=== PATIENT | male | born 1940 | race Caucasian/White ===

== ENCOUNTER 2018-12-09 09:05 | Outpatient (CLI) | payer MEDICARE ==
--- NOTE | 2018-12-09 14:01 | RAD ---
EXAM: Right wrist 3 views: HISTORY: Pain COMPARISON: None FINDINGS: Severe degenerative changes of the wrist including the radiocarpal and triscaphe region and trapezium first metacarpal joint. Positive ulnar variance. No acute fracture or dislocation or other significant acute osseous abnormality. IMPRESSION: No significant acute process.
== END 2018-12-09 09:06 | disposition home or self-care (01) ==
LOC: RAD-FRANK 09:05
PROVIDERS: ATTEND Nurse Practitioner Family
DX: M25.531 Pain in right wrist (principal)

== ENCOUNTER 2019-02-19 09:07 | Outpatient (CLI) | payer MEDICARE ==
--- NOTE | 2019-02-19 09:28 | RAD ---
CHEST TWO VIEWS: HISTORY: Cough. COMPARISON: 05/12/2005 FINDINGS: Heart size is within normal limits. Mild increased linear and interstitial markings bilaterally, yaniv dence for minimal chronic change. Appearance has actually improved from the prior 2004 study. IMPRESSION: 1. No acute intrathoracic disease. 2. Mild chronic changes. 3. Atherosclerosis of the aorta. POS: [facility]
== END 2019-02-19 09:08 | disposition home or self-care (01) ==
LOC: RAD-FRANK 09:07
PROVIDERS: ATTEND Nurse Practitioner Family
DX: R05 Cough (principal); I70.0 Atherosclerosis of aorta
CPT/HCPCS: 71046

== ENCOUNTER 2020-01-26 03:55 | Inpatient (IN) | payer MEDICARE ==
[2020-01-26] MEDS ORDERED: diphenhydrAMINE 50 MG/ML VIAL ONE (04:19)
[2020-01-26] MEDS ORDERED: methylPREDNISolone Sod Succ/PF 125 MG/2 ML VIAL ONE (04:19)
[2020-01-26] MEDS ORDERED: Famotidine/PF 20 mg/2ml Vial ONE (04:19)
[2020-01-26 05:19] LABS: #Basophils 0.1 thou/uL (0.0-0.2); #Lymphocytes 3.9 thou/uL (1.20-3.40); #Neutrophils 5.8 thou/uL (1.40-6.50); %Eosinophils 8.4 % (0.0-10.0); %Lymphocytes 33.3 % (21.0-51.0); %Neutrophils 49.2 % (42.0-75.0); Hemoglobin 14.9 g/dL (14.0-18.0); Mean Corpuscular HGB CONC 33.3 g/dL (32.0-36.0); Mean Corpuscular Hemoglobin 30.6 pg (27.0-31.0); Mean Corpuscular Volume 91.9 fL (78.0-98.0); Mean Platelet Volume 9.1 fL (7.4-10.4); Platelet Count 276 thou/uL (130-400); RBC Distribution Width 13.6 % (11.5-14.5); Red Blood Cell (RBC) Count 4.87 mill/uL (4.70-6.10); White Blood Cell (WBC) Count 11.8 thou/uL (4.8-10.8)
[2020-01-26] MEDS ORDERED: Senokot S 8.6-50 MG TAB PO PRN (05:29)
[2020-01-26] MEDS ORDERED: Acetaminophen 325 MG TAB PO PRN (05:29)
[2020-01-26 05:41] LABS: ALT (SGPT) 24 U/L (8-55); AST (SGOT) 25 U/L (5-34); Alkaline Phosphatase 57 U/L (40-110); Anion Gap 16 mmol/L (10-20); BUN (Urea Nitrogen) 28 mg/dL (8.4-25.7); Bilirubin, Total 0.6 mg/dL (0.2-1.2); Calc. Creatinine Clearance 0 mL/min (70-130); Calcium 9.7 mg/dL (7.8-10.44); Carbon Dioxide 23 mmol/L (23-31); Chloride 99 mmol/L (98-107); Estimated GFR-MDRD 50; Globulin 3.6 g/dL (2.4-3.5); Glucose 133 mg/dL (83-110); Potassium 4.3 mmol/L (3.5-5.1); Protein, Total 7.6 g/dL (5.8-8.1); Sodium 134 mmol/L (136-145)
[2020-01-26 05:42] LABS: Digoxin 0.45 ng/mL (0.8-2.0)
[2020-01-26] MEDS ORDERED: diphenhydrAMINE 50 MG/ML VIAL IVP PRN (06:05)
[2020-01-26] MEDS ORDERED: Dextrose 5% in Water 1,000 ML IV PRN (06:11)
[2020-01-26] MEDS ORDERED: Dextrose 50% Abboject 50 ML SYRINGE SLOW IVP PRN (06:11)
[2020-01-26 06:28] LABS: INR-International Normal Ratio 0.9; PTT 25.4 sec (22.9-36.1); Prothrombin Time 12.6 sec (12.0-14.7)
--- NOTE | 2020-01-26 06:41 | HP ---
CHIEF COMPLAINT: Difficulty breathing. HISTORY OF PRESENT ILLNESS: The patient is an 79-year-old male who stated that he was feeling well; however, went to sleep, woke up around 2 a.m. to go to the bathroom, felt like his trunk was hurting. At this time, he went to check himself in the mirror. He noted that his left side of the tongue was significantly swollen. He stated that he had some difficulty swallowing due to the size of his tongue and he called his son who brought him into the hospital. Denies any new medication. He states that he has been on lisinopril for many years. PAST MEDICAL HISTORY: He has a history of AFib, he is a diabetic, hypertension, asthma. PAST SURGICAL HISTORY: He has had a cholecystectomy. FAMILY HISTORY: Denies. ALLERGIES: HE IS ALLERGIC NOW TO LISINOPRIL. PRIOR TO THAT NO KNOWN ALLERGIES. MEDICATIONS: As of the following. He is on; 1. Coumadin. 2. Hydrochlorothiazide. 3. Digoxin. 4. Simvastatin. 5. Lisinopril. 6. Glipizide. 7. Metformin. 8. Aspirin. REVIEW OF SYSTEMS: All negative except for the ones mentioned above in the HPI. SOCIAL HISTORY: Denies any drug use. He drinks 1 beer everyday and chews tobacco. PHYSICAL EXAMINATION: VITAL SIGNS: Temperature of 97.7, 16, 97% on room air, 72, 135/75. GENERAL: He is awake, alert, and oriented x3. Does not appear in distress. HEENT: Significant swelling noted to the left side of the tongue compared to the right. The floor of the mouth appears to be significantly swollen as well. No lymphadenopathy felt to bilateral cervical area. CV: S1, S2 present. It is irregularly irregular. LUNGS: Clear to auscultation. No rhonchi or wheezes noted. ABDOMEN: Obese, soft. Bowel sounds are present x2. EXTREMITIES: He has 1 to 2+ lower extremity pitting edema. He has chronic venous changes. NEUROVASCULAR: There are no focal deficits noted. SKIN: No cuts, lesions, or bruises noted. LABORATORY RESULTS: As of the following; WBCs of 11.8, hemoglobin of 14.9, hematocrit of 44.8, sodium of 134, potassium of 4.3, BUN of 20, creatinine of 1.36, glucose of 133. His digoxin level was 0.45. ASSESSMENT AND PLAN: The patient is an 79-year-old male who presents to the hospital with complaints of shortness of breath and tongue swelling. 1. Angioedema, most likely secondary to lisinopril. We will hold it. He has significant swelling on the left side of the tongue. Currently, his vitals are stable. We will continue to monitor. We will continue the Pepcid, as needed Benadryl. He is getting FFP, so I do not think steroids will benefit this patient. 2. Hypertension. We will continue his home medications except for the lisinopril. 3. Atrial fibrillation. We will continue the Coumadin. We will also check a PT/INR on this patient. 4. Deep venous thrombosis prophylaxis. He is already on Coumadin. Job ID: [id number]
[2020-01-26 07:05] VITALS: BMI 37.4
[2020-01-26] MEDS ORDERED: Dextrose 5 % And 0.9 % NaCl 1,000 ML IV SCH ×2 (08:15→14:45)
[2020-01-26] MEDS ORDERED: Enoxaparin Sodium 40 MG/0.4 ML SYRINGE SC SCH (09:00)
[2020-01-26] MEDS: Famotidine/PF 20 mg/2ml Vial SLOW IVP SCH ×2 (09:40→20:02)
[2020-01-26] MEDS: methylPREDNISolone Sod Succ 40 MG VIAL IVP SCH (09:44)
[2020-01-26] MEDS ORDERED: cloNIDine 0.1 MG TAB PO PRN (10:17)
[2020-01-26] MEDS ORDERED: FLUTICASONE IH PRN (11:39)
[2020-01-26] MEDS ORDERED: SALMETEROL IH PRN (11:39)
[2020-01-26] MEDS ORDERED: [UNRECOGNIZED DRUG - OTHER] IH PRN (11:39)
[2020-01-26] MEDS ORDERED: Lidocaine 2% Jelly 5 ML TUBE ONE (12:01)
--- NOTE | 2020-01-26 13:04 | CON ---
DATE OF CONSULTATION: HISTORY OF PRESENT ILLNESS: Goldy Rodríguez is an 79-year-old gentleman, presented with rather acute onset of swelling of his tongue. He could not swallow. It happened rather rapidly he is on chronic lisinopril apparently, he has received a dose of steroids, Pepcid. No fresh frozen plasma. ENT has been consulted. He is now in the ICU with a pulse of 85, blood pressure of 180/86, saturations 96%, respirations 17. Awake, alert, and responsive, in no distress. The patient told me he has multiple medical problems, only sees a PA in [place], [place]. PAST MEDICAL HISTORY: Longstanding history of cardiac arrhythmias, diabetes, hypertension, cholesterol, and probably sleep apnea, does not want a sleep study. PAST SURGICAL HISTORY: Cholecystectomy. SOCIAL HISTORY: Chews tobacco. No alcohol abuse. HOME MEDICATIONS: Include; 1. Metformin 1000 two a day. 2. Glipizide 5 two a day. 3. Lisinopril 40 once a day. 4. Simvastatin 80. 5. Dig 125. 6. Hydrochlorothiazide 25. 7. Cardizem 180. 8. Advair inhaler. ALLERGIES: NONE. REVIEW OF SYSTEMS: Ten-point negative other than as noted. PHYSICAL EXAMINATION: GENERAL: He is in no distress. VITAL SIGNS: Pulse 76, blood pressure 180/106, saturations respirations 18. CHEST: Decreased breath sounds. No wheezing. No crackles. CARDIAC: Normal S1 and S2. No gallops. ABDOMEN: No mass. LABORATORY DATA: White count 11,000. Creatinine 1.36, lytes are normal otherwise. Dig level is normal. X-ray is clear. ASSESSMENT: Probably DIONNA related angioedema of the tongue, hypertension, azotemia, chronic lung disease, probable sleep apnea, renal failure, diabetes. PLAN: I agree with present conservative treatment. Nothing additional to offer at this time. If condition gets worse, he may benefit from fresh frozen plasma. Probably discontinue steroids tomorrow. Continue antihypertensive medication minus the DIONNA. Consultation note 70 minutes, 50% direct patient care. Job ID: [id number]
[2020-01-26] MEDS ORDERED: Hydrochlorothiazide 25 MG TAB PO SCH (14:00)
[2020-01-26] MEDS ORDERED: Digoxin 0.125 MG TAB PO SCH (14:00)
[2020-01-26] MEDS: HumaLOG 300 UNITS/3 ML VIAL SC PRN ×3 (14:05→20:03)
[2020-01-26] MEDS ORDERED: Warfarin Sodium 5 MG TAB PO SCH (17:00)
[2020-01-26] MEDS ORDERED: Warfarin Sodium 3 MG TAB PO SCH (17:00)
[2020-01-26] MEDS: glipiZIDE 5 MG TAB PO SCH (17:39)
[2020-01-26] MEDS: metFORMIN 500 MG TAB PO SCH (17:39)
[2020-01-26] MEDS: Mometasone 200 MCG/Formoterol 5 MCG 120 PUFF INHALER INH SCH (18:25)
[2020-01-26] MEDS ORDERED: Atorvastatin Calcium 40 MG TAB PO SCH (21:00)
[2020-01-27 04:59] LABS: Anion Gap 15 mmol/L (10-20); BUN (Urea Nitrogen) 30 mg/dL (8.4-25.7); Calc. Creatinine Clearance 89 mL/min (70-130); Calcium 9.1 mg/dL (7.8-10.44); Carbon Dioxide 22 mmol/L (23-31); Chloride 102 mmol/L (98-107); Estimated GFR-MDRD 58; Glucose 233 mg/dL (83-110); Potassium 4.2 mmol/L (3.5-5.1); Sodium 135 mmol/L (136-145)
[2020-01-27 06:42] LABS: Band 8 % (5-11); Hemoglobin 13.5 g/dL (14.0-18.0); Lymphocytes 13 % (21-51); MDiff Complete? YES; Mean Corpuscular HGB CONC 32.9 g/dL (32.0-36.0); Mean Corpuscular Hemoglobin 30.1 pg (27.0-31.0); Mean Corpuscular Volume 91.7 fL (78.0-98.0); Mean Platelet Volume 8.8 fL (7.4-10.4); Monocytes 5 % (0-10); Neutrophil 74 % (42-75); Platelet Count 274 thou/uL (130-400); RBC Distribution Width 13.3 % (11.5-14.5); Red Blood Cell (RBC) Count 4.49 mill/uL (4.70-6.10); White Blood Cell (WBC) Count 15.7 thou/uL (4.8-10.8)
[2020-01-27] MEDS: HumaLOG 300 UNITS/3 ML VIAL SC PRN (06:44)
[2020-01-27] MEDS: Mometasone 200 MCG/Formoterol 5 MCG 120 PUFF INHALER INH SCH (07:19)
[2020-01-27] MEDS: metFORMIN 500 MG TAB PO SCH (08:13)
[2020-01-27] MEDS: methylPREDNISolone Sod Succ 40 MG VIAL IVP SCH (08:14)
[2020-01-27] MEDS: glipiZIDE 5 MG TAB PO SCH (08:14)
[2020-01-27] MEDS: Famotidine/PF 20 mg/2ml Vial SLOW IVP SCH (08:14)
[2020-01-27] MEDS ORDERED: Hydrochlorothiazide 25 MG TAB PO SCH (09:00)
[2020-01-27] MEDS ORDERED: Digoxin 0.125 MG TAB PO SCH (09:00)
[2020-01-27 09:02] VITALS: BP 171/84; TEMP 97.7
--- NOTE | 2020-01-27 09:26 | PRG ---
DATE OF SERVICE: 01/27/2020 SUBJECTIVE: This morning, awake, alert, and responsive. Tongue is less swollen. OBJECTIVE: VITAL SIGNS: Temperature 97, pulse 79, respiratory rate 18, sats 90% on room air, blood pressure . HEENT: Tongue, no longer swollen. CHEST: No wheezing, crackles. CARDIAC: Normal S1, S2. No gallops. ABDOMEN: Soft. ASSESSMENT: Hypertension, angioedema, probably is related. I agree with discharging home. Follow up with primary care physician. Job ID: [id number]
--- NOTE | 2020-01-27 09:52 | DIS ---
DATE OF ADMISSION: 01/26/2020 DATE OF DISCHARGE: 01/27/2020 DISCHARGE DIAGNOSES: 1. Angioedema secondarily to lisinopril, resolving. 2. Hypertension, stable. 3. Chronic atrial fibrillation, on chronic anticoagulation with Coumadin. 4. Chronic kidney disease, stage 3. 5. Diabetes mellitus, type 2, stable. CONSULTATIONS: Dr. Jeffery with Pulmonology Service. PERTINENT LABORATORY AND X-RAY FINDINGS: Sodium ranged between 134 and 135, creatinine ranged between 1.21 and 1.36. LFTs within normal limits. CBC showed a white blood cell count ranging between 11.8 and 15.7, hemoglobin ranged between 13.5 and 14.9. Digoxin level 0.45. HOSPITAL COURSE: The patient was initially admitted to the Critical Care Unit after presenting with increased shortness of breath and tongue swelling. The patient had abrupt onset of tongue swelling with difficulty swallowing and mild shortness of breath. The patient was noted with angioedema of the tongue in the context of chronic lisinopril use. The patient received IV Benadryl, Pepcid, and Solu-Medrol. The patient had rapid improvement in symptoms with decreased swelling in less than 12 hours. The patient was discontinued on lisinopril with recommendations to avoid indefinitely. Overall, the patient did remain clinically stable, tolerating regular oral intake with stable vital signs. I have examined the patient at the time of discharge and discussed followup instructions. The patient verbalized understanding and agreement, ready for discharge on 01/27/2020. DISCHARGE MEDICATIONS: 1. Digoxin 0.125 mg p.o. daily. 2. Diltiazem extended release 180 mg p.o. daily. 3. Benadryl 25 mg p.o. q.6 hours p.r.n. 4. Advair 250/50 one inhalation daily. 5. Glipizide 5 mg p.o. b.i.d. 6. Hydrochlorothiazide 25 mg p.o. daily. 7. Metformin 1000 mg p.o. b.i.d. 8. Simvastatin 80 mg p.o. at bedtime. 9. Coumadin 5 mg p.o. on Saturday, , Saturday and 2.5 mg on Saturday, Saturday, Saturday and Saturday. FOLLOWUP: The patient may follow up with his primary care provider, Rosemary Glaser, within 3 to 5 days of discharge. CONDITION ON DISCHARGE: Stable. ACTIVITY: Ad juan a. DIET: Heart healthy and ADA. SPECIAL INSTRUCTIONS: Recommend serial blood pressure monitoring with discussions with primary care provider regarding replacement therapy for lisinopril. CODE STATUS: Full. DISPOSITION: Home on 01/27/2020. TIME SPENT: Total time preparing and coordinating discharge, 32 minutes. Job ID: [id number]
--- NOTE | 2020-01-27 14:21 | CON ---
DATE OF CONSULTATION: 01/27/2020 CHIEF COMPLAINT: Tongue and mouth swelling. HISTORY OF PRESENT ILLNESS: An 79-year-old male patient presenting with significant mouth swelling and shortness of breath to the emergency room and admitted to the intensive care unit for observation. The patient has had hydropic edema of the oral cavity and takes lisinopril as an DIONNA inhibitor and had concern for angioedema and ENT was consulted for airway observation and potentially intubation of surgical airway. PAST MEDICAL HISTORY: Includes hypertension, diabetes, and cardiovascular disease. SURGICAL HISTORY: Cholecystectomy. FAMILY HISTORY: Noncontributory. ALLERGIES: NO KNOWN PRIOR ALLERGIES. REVIEW OF SYSTEMS: SKIN: Negative. EYES: Negative. EARS, NOSE, AND THROAT: Please see HPI, otherwise negative. RESPIRATORY: Shortness of breath, otherwise negative. CARDIOVASCULAR: Negative. GASTROINTESTINAL: Negative. MUSCULOSKELETAL: Negative. NEUROLOGIC: Negative. HEMATOLOGIC/LYMPHATIC/IMMUNOLOGIC: Negative. ENDOCRINE: Negative. PHYSICAL EXAMINATION: GENERAL: No acute distress. Alert and oriented x3. HEAD AND FACE: Normocephalic, atraumatic. No facial skin lesion. No maxillary tenderness or frontal tenderness. No parotid gland or submandibular masses or tenderness. EYES: Extraocular movements are intact. Pupils are equal, round, and reactive to light. No nystagmus on lateral gaze. EARS: Right and left pinna are normal. EACs are clear and tympanic membranes are intact with normal landmarks with no evidence of effusion or infection. NOSE: External nose is normal. Nasal mucosa is healthy. Turbinates are healthy. No masses or lesions. ORAL CAVITY: Lips are normal. Teeth and gums are normal. Oral mucosa is moist without lesion. Tongue is slightly edematous, left greater than right. Floor of mouth is significantly swollen with hydropic edema. Base of tongue is normal. Vallecula normal. Nasopharynx, hypopharynx, and larynx, with scope evaluation, nasopharynx is clear. No masses or lesions noted. Posterior pharynx and base of tongue are normal. Valleculae normal. Epiglottis normal. True vocal folds and false vocal folds, arytenoids, and piriform sinuses are clear without masses, lesions or hydropic edema . True vocal folds are mobile bilaterally with good abduction and patent airway. NECK: No cervical lymphadenopathy. Trachea is midline. Thyroid is normal in size without apparent nodules. NEUROLOGIC: Cranial nerves 2 through 12 are grossly intact. Mood and affect are normal. PROCEDURE: Nasopharyngoscopy and laryngoscopy. ANESTHESIA: Topical with viscous lidocaine gel. DESCRIPTION OF PROCEDURE: Nasopharyngolaryngoscope was advanced through the left naris to the posterior choana and viewed the base of tongue and valleculae and true vocal folds and no masses or lesions or hydropic edema was present. The scope was removed and the patient tolerated the procedure well with no bleeding or significant pain. ASSESSMENT AND PLAN: An 79-year-old male patient who takes an DIONNA inhibitor and has clear hydropic edema most significant in the floor of mouth and left tongue consistent with angioedema. The patient was counseled carefully to avoid all DIONNA inhibitors and stop taking lisinopril and to meet with his primary care physician to get a new medication to manage his hypertension. The patient recommended to continue his medical management with his physician outside of the hospital and have a followup appointment as soon as possible. Given the patient has had several exams by myself and has had decreased swelling over a few hours in duration and had about 70% resolution, recommend overnight stay and then discharge per primary team and follow up in clinic to do a final physical exam and evaluation and possible laryngoscopy. The patient can follow up if desired, and clinic phone #[phone]. Job ID: [id number]
[2020-01-27] MEDS ORDERED: Warfarin Sodium 2.5 MG TAB PO SCH (17:00)
== END 2020-01-27 10:44 | disposition home or self-care (01) | DRG 916 ==
LOC: ERS 03:55 → CCU 05:33 → ONC 21:15
PROVIDERS: ADMIT Internal Medicine; ATTEND Internal Medicine
DX: T78.3XXA Angioneurotic edema, initial encounter (principal); I48.20 Chronic atrial fibrillation, unspecified; T46.4X5A Adverse effect of angiotensin-converting-enzyme inhibitors, initial encounter; E78.5 Hyperlipidemia, unspecified; E78.00 Pure hypercholesterolemia, unspecified; F17.210 Nicotine dependence, cigarettes, uncomplicated; J45.909 Unspecified asthma, uncomplicated; E11.22 Type 2 diabetes mellitus with diabetic chronic kidney disease; I12.9 Hypertensive chronic kidney disease with stage 1 through stage 4 chronic kidney disease, or unspecified chronic kidney disease; N18.3 Chronic kidney disease, stage 3 (moderate); Z90.49 Acquired absence of other specified parts of digestive tract; Z79.84 Long term (current) use of oral hypoglycemic drugs; Z79.01 Long term (current) use of anticoagulants
CPT/HCPCS: 36415; 36416; 80048; 80053; 80162; 85025; 85610; 85730; 86850; 86900; 86901; J1200; J2920; J2930; S0028